=== PATIENT | female | born 1965 | race Caucasian/White ===

== ENCOUNTER 2016-05-19 19:59 | Emergency (ER) | payer SELFPAY ==
[~2016-05-19] VITALS: Ht 157.5 cm; Wt 78.0 kg
[2016-05-19 20:49] VITALS: Ht 157.5 cm; Wt 78.0 kg
[2016-05-19] MEDS ORDERED: LIDOCAINE 1% (MDV) 20 ML INJ INJ STA (22:13)
[2016-05-19] MEDS ORDERED: DIPHTH/TET/ACEL PERTUSS (ADULT) 0.5 ML VIAL IM ONE (22:30)
--- NOTE | 2016-05-19 23:22 | RADRPT ---
PROCEDURE: XR Knee. CLINICAL INDICATION: Post traumatic left knee pain after a fall and laceration TECHNIQUE: AP, lateral and oblique views of the left knee were obtained. COMPARISON: None. FINDINGS: No fracture or osseous lesion is identified. There is no evidence for dislocation. Mineralization is within normal limits. Joint spaces are preserved. No evidence of effusion or soft tissue swelli ng is identified. No radiopaque foreign body is evident. RPTAT:HJJR IMPRESSION: Unremarkable left knee series. Physician Gissell Date Time Electronically viewed and signed by Physician Gissell on 05/19/2016 23:22 /
[2016-05-20] MEDS ORDERED: IBUP400T22 PO (00:32)
--- NOTE | 2016-05-20 00:43 | ERD ---
ER Documentation Chief Complaint Date/Time DATE: 05/20/16 TIME: 00:41 Chief Complaint Laceration on the left knee. (deep) HPI 51-year-old female with no significant past medical history presents the ED complaining of a mechanical fall earlier today. States that she was on her way to work and was rushing to clock and and accidentally landed on her left knee Ackles. States that she will not be reporting this under Worker's Compensation since she did not clock in. States that she fell on the escalator stairway. Denies any head or neck injuries. Denies any loss of consciousness. Denies any other injuries. Denies any headache, weakness, numbness or tingling, loss of sensation, loss of range of motion, nausea, vomiting, chest pain, shortness of breath. States that she is up-to-date with her tetanus vaccine. ROS All systems reviewed and are negative except as per history of present illness. Medications Home Meds Active Scripts Ibuprofen* (Motrin*) 400 Mg Tab, 400 MG PO Q6, #30 TAB Prov:MARIO HAYES PA-C 05/20/16 Allergies Allergies: Coded Allergies: No Known Allergy (Unverified , 05/19/16) PMhx/Soc Medical and Surgical Hx: pt denies Medical Hx, pt denies Surgical Hx Hx Alcohol Use: No Hx Substance Use: No Hx Tobacco Use: No Smoking Status: Never smoker Physical Exam Vitals Vital Signs Date Time Temp Pulse Resp B/P Pulse Ox O2 Delivery O2 Flow Rate FiO2 05/19/16 20:49 99.6 82 20 150/93 98 Physical Exam Const: Mra-duo-wgpesvbol, well-nourished. In no acute distress. Head: Atraumatic, normocephalic Eyes: Normal Conjunctiva without injection. No purulent discharge. PERRLA. EOMI ENT: Normal external ear. Ear canal without erythema. Tympanic membrane pearly garcia without effusion or bulging. Nasal canal clear with normal turbinates. Moist oropharynx without tonsillar exudates. Non-erythematous pharynx. Uvula midline. No drooling. No trismus. Neck: No cervical midline tenderness. Full range of motion. No meningismus. No cervical lymphadenopathy. No JVD. Resp: Clear to auscultation bilaterally. No wheezing, rhonchi, rales, or crackles. No accessory muscle use. No retractions. Cardio: Regular rate and rhythm. No murmurs, rubs or gallops. Abd: Soft, non tender, non distended. Normal bowel sounds. No palpable masses. No rebound tenderness. No guarding. Negative McBurney's Point. Negative Stroud's Sign. Skin: Normal skin turgor. No petechiae or rashes. 4 cm V-shaped laceration noted on the left anterior knee. Minimal bleeding noted. No erythema, edema noted. No deformities noted. Tenderness to palpation of the patella. Back: No midline tenderness. No CVA tenderness. Ext: No cyanosis, or edema. Distal pulses intact bilaterally. Neur: Awake and alert. Normal gait. Normal coordination. Cranial Nerves II- VII intact. Normal finger to nose. Muscle strength 5/5. Sensation intact. Psych: Normal Mood and Affect Results 24 hrs Current Medications Medications (Trade) Dose Ordered Sig/Dwayne Route PRN Reason Start Time Stop Time Status Last Admin Dose Admin Diphtheria/ Tetanus/Acell Pertussis (Adacel) 0.5 ml ONCE ONCE IM 05/19/16 22:30 05/19/16 22:31 DC 05/19/16 22:26 Lidocaine (Xylocaine 1% (Mdv) 20 ml) 20 ml ONCE STAT INJ 05/19/16 22:13 05/19/16 22:15 DC Procedures/MDM This is a 51-year-old female with no significant past mechanical history presents the ED sustaining a left knee laceration after mechanical fall. Patient is afebrile and nontoxic-appearing. Patient has normal vital signs. A left knee x-ray was ordered to further evaluate patient. Patient was given tetanus vaccine here in the ED. Patient gave consent to perform laceration repair. Laceration Repair by me: Anesthesia: 15 cc 1% lidocaine locally Location: Left anterior knee Tendon/Joint/Nerves: No injury Foreign body: None detected after copious irrigation and exploration Technique: 6 4-0 Ethilon simple Interrupted Sutures Complexity: No subcutaneous sutures/mucosal repair/ edge excision Post Closure Length: [4 cm] PROCEDURE: XR Knee. CLINICAL INDICATION: Post traumatic left knee pain after a fall and laceration TECHNIQUE: AP, lateral and oblique views of the left knee were obtained. COMPARISON: None. FINDINGS: No fracture or osseous lesion is identified. There is no evidence for dislocation. Mineralization is within normal limits. Joint spaces are preserved. No evidence of effusion or soft tissue swelling is identified. No radiopaque foreign body is evident. RPTAT:HJJR IMPRESSION: Unremarkable left knee series. Patient's bleeding was easily controlled in the department and there is no indication of anemia. Patient is neurovascularly intact. No evidence of compartment syndrome, neurologic injury, vascular injury, open joint, tendon laceration, or foreign body. Patient is appropriate for outpatient follow up. 48 hour wound check. Scar minimization instructions given. Instructed patient to return for suture removal in 10 days. Bupropion was prescribed for pain. Instructed patient to return to the ED sooner for any worsening symptoms. Follow up with primary care physician in 1- 2 days. Patient's questions were answered. Patient understood and agreed with discharge plan. Departure Diagnosis: Primary Impression: Laceration of left knee Condition: Stable Patient Instructions: Laceration, Extrem (Suture, Staple, Or Tape) Referrals: [facility] YOU HAVE RECEIVED A MEDICAL SCREENING EXAM AND THE RESULTS INDICATE THAT YOU DO NOT HAVE A CONDITION THAT REQUIRES URGENT TREATMENT IN THE EMERGENCY DEPARTMENT. FURTHER EVALUATION AND TREATMENT OF YOUR CONDITION CAN WAIT UNTIL YOU ARE SEEN IN YOUR DOCTORS OFFICE WITHIN THE NEXT 1-2 DAYS. IT IS YOUR RESPONSIBILITY TO MAKE AN APPOINTMENT FOR FOLOW-UP CARE. IF YOU HAVE A PRIMARY DOCTOR --you should call your primary doctor and schedule an appointment IF YOU DO NOT HAVE A PRIMARY DOCTOR YOU CAN CALL OUR PHYSICIAN REFERRAL HOTLINE AT IF YOU CAN NOT AFFORD TO SEE A PHYSICIAN YOU CAN CHOSE FROM THE FOLLOWING [facility] [address] [facility] [facility] [address] [facility] [address] [facility] [address] [facility] [address] [facility]. [facility]. [address] [facility]. [facility] YOU HAVE RECEIVED A MEDICAL SCREENING EXAM AND THE RESULTS INDICATE THAT YOU DO NOT HAVE A CONDITION THAT REQUIRES URGENT TREATMENT IN THE EMERGENCY DEPARTMENT. FURTHER EVALUATION AND TREATMENT OF YOUR CONDITION CAN WAIT UNTIL YOU ARE SEEN IN YOUR DOCTORS OFFICE WITHIN THE NEXT 1-2 DAYS. IT IS YOUR RESPONSIBILITY TO MAKE AN APPOINTMENT FOR FOLOW-UP CARE. IF YOU HAVE A PRIMARY DOCTOR --you should call your primary doctor and schedule and appointment IF YOU DO NOT HAVE A PRIMARY DOCTOR YOU CAN CALL OUR PHYSICIAN REFERRAL HOTLINE AT . IF YOU CAN NOT AFFORD TO SEE A PHYSICIAN YOU CAN CHOSE FROM THE FOLLOWING [facility] INSTITUTIONS: [facility] [address] [place] [address] [facility] [address] [place] [address] [facility] [address] [place] [address] [facility] Additional Instructions: FOLLOW UP WITH YOUR PRIMARY CARE PHYSICIAN OR HERE IN THE ED in 2 DAYS FOR A WOUND CHECK. RETURN TO THE ED IN 10 DAYS FOR SUTURE REMOVAL. Return to this facility if you are not improving as expected. MARIO HAYES PA-C May 20, 2016 00:43
[2016-05-20 00:59] VITALS: BP 161/101; PULSE 71; RESP 20; TEMP 98.3
== END 2016-05-20 01:06 | disposition home or self-care (01) ==
LOC: FTE 19:59
DX: S81.012A Laceration without foreign body, left knee, initial encounter (principal); W10.9XXA Fall (on) (from) unspecified stairs and steps, initial encounter; Y92.9 Unspecified place or not applicable; Z23 Encounter for immunization
CPT/HCPCS: 73562; 90471; 90715

== ENCOUNTER 2016-05-22 15:03 | Emergency (ER) | payer BC ==
[~2016-05-22] VITALS: Wt 77.1 kg
[~2016-05-22 15:03] MED LIST: IBUP400T22 PO
--- NOTE | 2016-05-22 16:25 | ERD ---
ER Documentation Chief Complaint Date/Time DATE: 05/22/16 TIME: 16:17 Chief Complaint WOUND CHECK ON LAC REPAIR LEFT KNEE HPI This 51-year-old female presented for her today routine wound check for laceration repair of her left knee after she had fallen onto the ground 2 days ago. She has noted no increasing pain or discharge. ROS All systems reviewed and are negative except as per history of present illness. Medications Home Meds Active Scripts Ibuprofen* (Motrin*) 400 Mg Tab, 400 MG PO Q6, #30 TAB Prov:MARIO HAYES PA-C 05/20/16 Allergies Allergies: Coded Allergies: No Known Allergy (Unverified , 05/19/16) PMhx/Soc Medical and Surgical Hx: pt denies Medical Hx, pt denies Surgical Hx Hx Alcohol Use: No Hx Substance Use: No Hx Tobacco Use: No Smoking Status: Never smoker Physical Exam Vitals Vital Signs Date Time Temp Pulse Resp B/P Pulse Ox O2 Delivery O2 Flow Rate FiO2 05/22/16 15:08 98.6 69 18 158/92 96 Physical Exam Const: [] No distress Ext: No cyanosis, or edema, irregular shaped laceration to the left knee with sutures intact. No discharge or bleeding. No tenderness surrounding. Patient is ambulatory without pain. Distal pulses intact Procedures/MDM Simple recheck for laceration repair with no complications. No signs of infection. Discharging with instructions to return to the ER for 5 days for suture removal. Dressing placed. Departure Diagnosis: Primary Impression: Encounter for wound re-check Condition: Stable Patient Instructions: Wound Check, Lac F/U (No Infection) Referrals: [facility] YOU HAVE RECEIVED A MEDICAL SCREENING EXAM AND THE RESULTS INDICATE THAT YOU DO NOT HAVE A CONDITION THAT REQUIRES URGENT TREATMENT IN THE EMERGENCY DEPARTMENT. FURTHER EVALUATION AND TREATMENT OF YOUR CONDITION CAN WAIT UNTIL YOU ARE SEEN IN YOUR DOCTORS OFFICE WITHIN THE NEXT 1-2 DAYS. IT IS YOUR RESPONSIBILITY TO MAKE AN APPOINTMENT FOR FOLOW-UP CARE. IF YOU HAVE A PRIMARY DOCTOR --you should call your primary doctor and schedule an appointment IF YOU DO NOT HAVE A PRIMARY DOCTOR YOU CAN CALL OUR PHYSICIAN REFERRAL HOTLINE AT IF YOU CAN NOT AFFORD TO SEE A PHYSICIAN YOU CAN CHOSE FROM THE FOLLOWING [facility] [address] [facility]. [facility] [address] [facility] [facility] [address] [facility] [address] [facility] [address] [facility]. [facility]. [address] Additional Instructions: Regrese al la alphonso de emergenica en 4-5 para quitat las puntadas. EM SIMMONS DO May 22, 2016 16:25
== END 2016-05-22 16:47 | disposition home or self-care (01) ==
LOC: FTE 15:03
DX: Z48.01 Encounter for change or removal of surgical wound dressing (principal)
CPT/HCPCS: 99283